=== PATIENT | female | born 1975 | race Caucasian/White ===

== ENCOUNTER 2017-08-12 22:42 | Emergency (ER) | payer OTHER ==
[~2017-08-12] VITALS: Ht 160 cm; Wt 48.1 kg
[~2017-08-12 22:42] MED LIST: ALLERGY MEDICATION; ASPI81EC; BUDE6HFA; BUDE6HFA INH; CITA20 PO; CLIN300 PO; CLINDAMYCIN IV; CYCL10 PO; Cyclobenzaprine5 MG PO; DIPH50 PO; FLUSAL2505; HYDACE10B; HYDACE10B PO; HYDACE5 PO; HYDGUAL120 PO; IBUP600 PO; LEVO750 PO; METAOI; METH5 PO; Norco 5-325 Ta1 EACH PO; OXYACE10 PO; OXYACE5T PO; PRED10 PO; RXLORA1 PO; SULTRIDS PO; SYMBICORT; VENL150ER PO; Ventolin/Prove6.7 GM INH
== END 2017-08-13 00:30 | disposition home or self-care (01) ==
LOC: ER 22:42
DX: K04.7 Periapical abscess without sinus (principal); Z88.0 Allergy status to penicillin; Z88.8 Allergy status to other drugs, medicaments and biological substances; Z79.899 Other long term (current) drug therapy; F17.200 Nicotine dependence, unspecified, uncomplicated; Z91.018 Allergy to other foods
CPT/HCPCS: 96365; 99282

== ENCOUNTER 2017-08-13 23:23 | Emergency (ER) | payer OTHER ==
[~2017-08-13] VITALS: Ht 160 cm; Wt 48.1 kg
== END 2017-08-14 01:01 | disposition home or self-care (01) ==
LOC: ER 23:23
DX: K04.7 Periapical abscess without sinus (principal); Z88.0 Allergy status to penicillin; Z88.8 Allergy status to other drugs, medicaments and biological substances; Z91.018 Allergy to other foods; Z79.899 Other long term (current) drug therapy; Z79.2 Long term (current) use of antibiotics; F17.200 Nicotine dependence, unspecified, uncomplicated
CPT/HCPCS: 96365; 99282

== ENCOUNTER 2017-08-14 23:24 | Emergency (ER) | payer OTHER ==
[~2017-08-14] VITALS: Ht 160 cm; Wt 48.1 kg
== END 2017-08-15 01:28 | disposition home or self-care (01) ==
LOC: ER 23:24
DX: K04.7 Periapical abscess without sinus (principal); F17.200 Nicotine dependence, unspecified, uncomplicated; Z88.8 Allergy status to other drugs, medicaments and biological substances; Z88.0 Allergy status to penicillin; Z91.018 Allergy to other foods; Z79.899 Other long term (current) drug therapy
CPT/HCPCS: 96365; 99282

== ENCOUNTER 2017-08-15 08:03 | Day surgery (SDC) | payer OTHER | END 2017-08-15 08:42 | disposition home or self-care (01) | LOC: ATC 08:03 | DX: K04.7 Periapical abscess without sinus (principal) | CPT/HCPCS: 96365 ==

== ENCOUNTER → 2018-04-02 | Outpatient (CLI) | payer OTHER | END | disposition home or self-care (01) | LOC: LAB SRC 10:25 → LAB SHORT 10:25 | DX: Z51.81 Encounter for therapeutic drug level monitoring (principal); Z79.899 Other long term (current) drug therapy | CPT/HCPCS: G0480 ==

== ENCOUNTER → 2018-04-28 | Outpatient (CLI) | payer OTHER | END | disposition home or self-care (01) | LOC: LAB SHORT 12:55 → PLD 12:55 | DX: R87.618 Other abnormal cytological findings on specimens from cervix uteri (principal) | CPT/HCPCS: 88305 ==

== ENCOUNTER → 2018-08-05 | Outpatient (CLI) | payer OTHER | END | disposition home or self-care (01) | LOC: LAB SHORT 15:58 → LAB SRC 15:58 → LAB SHORT 08-06 10:36 | DX: N39.0 Urinary tract infection, site not specified (principal) | CPT/HCPCS: 87077; 87086; 87186 ==

== ENCOUNTER 2019-04-11 16:43 | Emergency (ER) | payer OTHER ==
[~2019-04-11] VITALS: Ht 160 cm; Wt 49.9 kg
[2019-04-11 17:45] LABS: BASOPHILS ABSOLUTE AUTO 0.04 K/mm3 (0.00-0.23); BASOPHILS PERCENT AUTO 0 % (0-2); EOSINOPHILS ABSOLUTE AUTO 0.09 K/mm3 (0.00-0.68); EOSINOPHILS PERCENT AUTO 1 % (0-6); Hematocrit 44.1 % (33.0-51.0); IMMATURE GRAN ABSOLUTE AUTO 0.03 K/mm3 (0.00-0.10); IMMATURE GRAN PERCENT AUTO 0 % (0-1); LYMPHOCYTES ABSOLUTE AUTO 2.68 K/mm3 (0.84-5.20); LYMPHOCYTES PERCENT AUTO 26 % (21-46); MONOCYTES ABSOLUTE AUTO 0.54 K/mm3 (0.16-1.47); MONOCYTES PERCENT AUTO 5 % (4-13); Mean Corpuscular HGB 31.9 pg (26.0-34.0); Mean Corpuscular HGB Conc 31.7 g/dL (31.5-36.5); Mean Corpuscular Volume 101 fL (80-100); Mean Platelet Volume 8.9 fL (9.1-12.4); NEUTROPHILS PERCENT AUTO 67 % (41-73); Platelet Count 293 K/mm3 (150-400); RDW Coefficient Variation 13.9 % (11.7-14.2); RDW Standard Deviation 51.6 fL (35.1-46.3); Red Blood Cell Count 4.39 M/mm3 (3.80-5.20); White Blood Cell Count 10.18 K/mm3 (4.00-11.30)
[2019-04-11 18:07] LABS: Alanine Aminotransfer (ALT/SGP 17 U/L (12-78); Albumin, Blood 4.2 g/dL (3.4-5.0); Alk Phos 85 U/L (50-136); Anion Gap 6 mmol/L (6-16); Aspartate Aminotrans (AST/SGOT 13 U/L (12-37); Bilirubin, Total 0.3 mg/dL (0.1-1.0); Blood Urea Nitrogen 12 mg/dL (8-24); Bun/Creatinine Ratio 16.5 (12.0-20.0); CO2, Blood 22 mmol/L (21-32); Calcium, Blood 9.3 mg/dL (8.5-10.1); Chloride, Blood 106 mmol/L (98-108); Creatinine, Blood 0.73 mg/dL (0.40-1.00); Globulin, Blood 4.2 g/dL (2.2-4.0); Glomerular Filtration Rate >60 (60-); Glucose, Blood 86 mg/dL (70-99); Potassium, Blood 3.5 mmol/L (3.5-5.5); Sodium, Blood 134 mmol/L (136-145); Total Protein, Blood 8.4 g/dL (6.4-8.2)
== END 2019-04-11 22:13 | disposition home or self-care (01) ==
LOC: ER 16:43
PROVIDERS: Emergency Medicine
DX: N93.9 Abnormal uterine and vaginal bleeding, unspecified (principal); R10.32 Left lower quadrant pain; F17.210 Nicotine dependence, cigarettes, uncomplicated; Z79.899 Other long term (current) drug therapy
CPT/HCPCS: 36415; 80053; 83690; 84703; 85025; 96360; 99284-25; J7120

== ENCOUNTER → 2019-04-25 | Outpatient (CLI) | payer OTHER ==
[2019-04-27 14:09] LABS: HPV 16 Positive (Negative); HPV 18 Negative (Negative); HPV OTHER HR TYPES Negative (Negative)
== END | disposition home or self-care (01) ==
LOC: LAB SHORT 19:13 → LAB 19:13
PROVIDERS: Obstetrics & Gynecology
DX: Z01.419 Encounter for gynecological examination (general) (routine) without abnormal findings (principal)
CPT/HCPCS: 87624; G0123

== ENCOUNTER 2019-11-21 11:17 | Day surgery (SDC) | payer OTHER ==
[~2019-11-21] VITALS: Ht 165.1 cm; Wt 52.6 kg
[~2019-11-21 11:17] MED LIST changes: +GABA100 PO; +PANT40; +POTA10T PO; +SYMBICORT 160-4.6 GM INH
--- NOTE | 2019-11-21 12:11 | NUR ---
11/21/19 1211 Subhash jacob FIRST IV IN RIGHT HAND MISSED SECOND IV IN RIGHT AC WORKED
== END 2019-11-21 13:32 | disposition home or self-care (01) ==
LOC: ORSCSDS 11:17
PROVIDERS: Student in an Organized Health Care Education/Training Program
PROC: 0DB78ZX Excision of Stomach, Pylorus, Via Natural or Artificial Opening Endoscopic, Diagnostic (ICD-10-PCS; principal; 2019-11-21 13:00)
PROC: 0DB58ZX Excision of Esophagus, Via Natural or Artificial Opening Endoscopic, Diagnostic (ICD-10-PCS; principal; 2019-11-21 13:00)
PROC: 0DB98ZX Excision of Duodenum, Via Natural or Artificial Opening Endoscopic, Diagnostic (ICD-10-PCS; principal; 2019-11-21 13:00)
DX: K21.9 Gastro-esophageal reflux disease without esophagitis (principal); R10.9 Unspecified abdominal pain; K22.70 Barrett's esophagus without dysplasia; R13.14 Dysphagia, pharyngoesophageal phase; K29.70 Gastritis, unspecified, without bleeding; F17.210 Nicotine dependence, cigarettes, uncomplicated; I10 Essential (primary) hypertension; J45.909 Unspecified asthma, uncomplicated; Z79.899 Other long term (current) drug therapy
CPT/HCPCS: 88305; 88342; J2704; J7120

== ENCOUNTER → 2022-03-16 | Outpatient (CLI) | payer OTHER ==
[2022-03-18 11:00] LABS: Stool Occult Bld Immuno 1 Negative (NEGATIVE)
== END | disposition home or self-care (01) ==
LOC: LAB SHORT 12:00 → LAB 12:00
PROVIDERS: Physician Assistant
DX: Z12.11 Encounter for screening for malignant neoplasm of colon (principal)
CPT/HCPCS: G0328

== ENCOUNTER 2022-10-26 23:43 | Emergency (ER) | payer OTHER ==
[~2022-10-26] VITALS: Ht 160 cm; Wt 45.4 kg
[2022-10-27 00:23] VITALS: BP 151/102
[2022-10-27 01:00] LABS: BASOPHILS ABSOLUTE AUTO 0.05 K/mm3 (0.00-0.23); BASOPHILS PERCENT AUTO 0 % (0-2); EOSINOPHILS ABSOLUTE AUTO 0.09 K/mm3 (0.00-0.68); EOSINOPHILS PERCENT AUTO 1 % (0-6); Hematocrit 39.2 % (33.0-51.0); Hemoglobin 13.3 g/dL (11.5-16.0); IMMATURE GRAN ABSOLUTE AUTO 0.04 K/mm3 (0.00-0.10); IMMATURE GRAN PERCENT AUTO 0 % (0-1); LYMPHOCYTES ABSOLUTE AUTO 2.47 K/mm3 (0.84-5.20); LYMPHOCYTES PERCENT AUTO 21 % (21-46); MONOCYTES PERCENT AUTO 4 % (4-13); Mean Corpuscular HGB 31.2 pg (26.0-34.0); Mean Corpuscular HGB Conc 33.9 g/dL (31.5-36.5); Mean Corpuscular Volume 92 fL (80-100); Mean Platelet Volume 8.7 fL (9.1-12.4); NEUTROPHILS PERCENT AUTO 73 % (41-73); Platelet Count 401 K/mm3 (150-400); RDW Coefficient Variation 14.2 % (11.7-14.2); RDW Standard Deviation 48.2 fL (35.1-46.3); Red Blood Cell Count 4.26 M/mm3 (3.80-5.20); White Blood Cell Count 11.75 K/mm3 (4.00-11.30)
[2022-10-27 01:16] LABS: Albumin, Blood 3.7 g/dL (3.4-5.0); Albumin/Globulin Ratio 0.9 (0.8-1.8); Bilirubin, Total 0.3 mg/dL (0.1-1.0); Bun/Creatinine Ratio 15.6 (12.0-20.0); Calcium, Blood 9.6 mg/dL (8.5-10.1); Creatinine, Blood 0.83 mg/dL (0.40-1.00); Globulin, Blood 4.2 g/dL (2.2-4.0); Salicylate 13.2 mg/dL (2.8-20.0); Total Protein, Blood 7.9 g/dL (6.4-8.2)
== END 2022-10-27 04:08 | disposition left against medical advice (07) ==
LOC: ER 23:43
PROVIDERS: Student in an Organized Health Care Education/Training Program
DX: R44.3 Hallucinations, unspecified (principal); R20.0 Anesthesia of skin; F17.200 Nicotine dependence, unspecified, uncomplicated; Z79.899 Other long term (current) drug therapy; Z53.21 Procedure and treatment not carried out due to patient leaving prior to being seen by health care provider
CPT/HCPCS: 80053; 84484; 85025; 93005; 93010; G0480

== ENCOUNTER → 2022-10-29 | Outpatient (CLI) | payer OTHER | LOC: LAB SHORT 15:04 → LAB 15:04 | DX: N39.0 Urinary tract infection, site not specified (principal) | CPT/HCPCS: 87077; 87086; 87186 ==

== ENCOUNTER 2022-11-22 17:52 | Emergency (ER) | payer OTHER ==
[~2022-11-22] VITALS: Ht 160 cm; Wt 45.4 kg
[2022-11-22 18:17] VITALS: BP 162/110
[2022-11-22] MEDS ORDERED: LOSA25 PO (19:38)
[2022-11-22 20:04] LABS: BASOPHILS ABSOLUTE AUTO 0.07 K/mm3 (0.00-0.23); BASOPHILS PERCENT AUTO 1 % (0-2); EOSINOPHILS ABSOLUTE AUTO 0.11 K/mm3 (0.00-0.68); EOSINOPHILS PERCENT AUTO 1 % (0-6); Hematocrit 34.1 % (33.0-51.0); Hemoglobin 11.6 g/dL (11.5-16.0); IMMATURE GRAN ABSOLUTE AUTO 0.05 K/mm3 (0.00-0.10); IMMATURE GRAN PERCENT AUTO 0 % (0-1); LYMPHOCYTES ABSOLUTE AUTO 1.94 K/mm3 (0.84-5.20); LYMPHOCYTES PERCENT AUTO 14 % (21-46); MONOCYTES ABSOLUTE AUTO 0.72 K/mm3 (0.16-1.47); MONOCYTES PERCENT AUTO 5 % (4-13); Mean Corpuscular HGB 31.9 pg (26.0-34.0); Mean Corpuscular Volume 94 fL (80-100); Mean Platelet Volume 9.4 fL (9.1-12.4); NEUTROPHILS ABSOLUTE AUTO 10.79 K/mm3 (1.96-9.15); NEUTROPHILS PERCENT AUTO 79 % (41-73); Platelet Count 283 K/mm3 (150-400); RDW Coefficient Variation 14.7 % (11.7-14.2); Red Blood Cell Count 3.64 M/mm3 (3.80-5.20); White Blood Cell Count 13.68 K/mm3 (4.00-11.30)
[2022-11-22 20:16] LABS: Source, Urine Clean Catch
[2022-11-22 20:18] LABS: Acetaminophen, Random <2.0 ug/mL (10.0-30.0); Alanine Aminotransfer (ALT/SGP 15 U/L (12-78); Albumin, Blood 3.6 g/dL (3.4-5.0); Albumin/Globulin Ratio 0.9 (0.8-1.8); Alk Phos 86 U/L (50-136); Anion Gap 7 mmol/L (6-16); Aspartate Aminotrans (AST/SGOT 20 U/L (12-37); Bilirubin, Total 0.3 mg/dL (0.1-1.0); Blood Urea Nitrogen 9 mg/dL (8-24); Bun/Creatinine Ratio 8.2 (12.0-20.0); CO2, Blood 18 mmol/L (21-32); Calcium, Blood 9.3 mg/dL (8.5-10.1); Chloride, Blood 114 mmol/L (98-108); Ethanol (Alcohol), Blood, Med <3 mg/dL; Globulin, Blood 3.9 g/dL (2.2-4.0); Glomerular Filtration Rate 62 (60-); Glucose, Blood 90 mg/dL (70-99); Potassium, Blood 3.2 mmol/L (3.5-5.5); Salicylate 13.3 mg/dL (2.8-20.0); Sodium, Blood 139 mmol/L (136-145); Total Protein, Blood 7.5 g/dL (6.4-8.2)
[2022-11-22 20:19] LABS: Bilirubin, Urine Neg (Neg); Blood, Urine 2+ (Neg); Glucose Qualitative, Urine Neg (Neg); Ketones, Urine Neg (Neg); Leukocyte Esterase, Urine 1+ (Neg); Nitrite, Urine Neg (Neg); Protein, Urine 1+ (Neg); Urobilinogen, Urine NORM (Normal); pH, Urine 6.5 (5.0-8.0)
[2022-11-22 20:24] LABS: Appearance, Urine Hazy (Clear); Color, Urine Yellow (P-Yellow)
[2022-11-22 20:25] LABS: Bacteria Many /hpf; Red Blood Cells, Urine 0-2 /hpf (0-2); Squamous Epithelial Cells Few /hpf (Few)
[2022-11-22 20:40] LABS: U Amphetamine Screen Not Detected; U Barbituate Screen Not Detected; U Benzodiazapine Screen Not Detected; U Buprenorphine Screen Not Detected; U Cannabinoids Screen Not Detected; U Cocaine Screen Not Detected; U Methadone Screen Not Detected; U Methamphetamine Screen Not Detected; U Opiates Screen DETECTED; U Oxycodone Screen Not Detected; U Phencyclidine Screen Not Detected; U Propoxyphene Screen Not Detected
[2022-11-22] MEDS ORDERED: ABILIFY MYCITE PO (21:41)
[2022-11-22] MEDS ORDERED: Macrobid 100 M100 MG PO (21:41)
== END 2022-11-22 21:55 | disposition home or self-care (01) ==
LOC: ER 17:52
PROVIDERS: Emergency Medicine
DX: F29 Unspecified psychosis not due to a substance or known physiological condition (principal); N39.0 Urinary tract infection, site not specified; E87.6 Hypokalemia; F17.210 Nicotine dependence, cigarettes, uncomplicated; Z88.0 Allergy status to penicillin; Z88.1 Allergy status to other antibiotic agents; Z91.018 Allergy to other foods; Z88.8 Allergy status to other drugs, medicaments and biological substances; Z79.1 Long term (current) use of non-steroidal anti-inflammatories (NSAID); Z79.899 Other long term (current) drug therapy; Z79.51 Long term (current) use of inhaled steroids
CPT/HCPCS: 80053; 81001; 81025; 85025; 87077; 87086; 87186; 99283-25; A9270; G0480; Q3014

== ENCOUNTER 2023-02-13 11:28 | Emergency (ER) | payer OTHER ==
[~2023-02-13] VITALS: Ht 160 cm; Wt 43.1 kg
[~2023-02-13 11:28] MED LIST changes: +ABILIFY MYCITE PO; +LOSA25 PO; +Macrobid 100 M100 MG PO
[2023-02-13 11:34] VITALS: BP 158/104
[2023-02-13 11:57] LABS: BASOPHILS ABSOLUTE AUTO 0.08 K/mm3 (0.00-0.23); BASOPHILS PERCENT AUTO 1 % (0-2); EOSINOPHILS ABSOLUTE AUTO 0.05 K/mm3 (0.00-0.68); EOSINOPHILS PERCENT AUTO 0 % (0-6); Hematocrit 39.8 % (33.0-51.0); Hemoglobin 13.2 g/dL (11.5-16.0); IMMATURE GRAN ABSOLUTE AUTO 0.06 K/mm3 (0.00-0.10); IMMATURE GRAN PERCENT AUTO 0 % (0-1); LYMPHOCYTES ABSOLUTE AUTO 2.39 K/mm3 (0.84-5.20); LYMPHOCYTES PERCENT AUTO 15 % (21-46); MONOCYTES ABSOLUTE AUTO 0.66 K/mm3 (0.16-1.47); MONOCYTES PERCENT AUTO 4 % (4-13); Mean Corpuscular HGB 32.6 pg (26.0-34.0); Mean Corpuscular HGB Conc 33.2 g/dL (31.5-36.5); Mean Corpuscular Volume 98 fL (80-100); Mean Platelet Volume 8.7 fL (9.1-12.4); NEUTROPHILS ABSOLUTE AUTO 12.86 K/mm3 (1.96-9.15); NEUTROPHILS PERCENT AUTO 80 % (41-73); Platelet Count 423 K/mm3 (150-400); RDW Coefficient Variation 14.6 % (11.7-14.2); RDW Standard Deviation 53.2 fL (35.1-46.3); Red Blood Cell Count 4.05 M/mm3 (3.80-5.20)
[2023-02-13 12:02] LABS: Source, Urine Clean Catch
[2023-02-13] MEDS ORDERED: CONSTULOSE10 GM/155 PO (12:02)
[2023-02-13] MEDS ORDERED: OLANZAPINE1024 PO (12:03)
[2023-02-13] MEDS ORDERED: OMEP20ER PO (12:03)
[2023-02-13 12:13] LABS: Appearance, Urine Hazy (Clear); Bilirubin, Urine Neg (Neg); Blood, Urine 2+ (Neg); Color, Urine Yellow (P-Yellow); Glucose Qualitative, Urine Neg (Neg); Ketones, Urine Neg (Neg); Leukocyte Esterase, Urine 2+ (Neg); Nitrite, Urine Pos (Neg); Protein, Urine 2+ (Neg); Specific Gravity, Urine 1.015 (1.003-1.022); Urobilinogen, Urine NORM (Normal)
[2023-02-13 12:32] LABS: Ethanol (Alcohol), Blood, Med <3 mg/dL; Salicylate 11.3 mg/dL (2.8-20.0)
[2023-02-13 12:34] LABS: Acetaminophen, Random <2.0 ug/mL (10.0-30.0); Alanine Aminotransfer (ALT/SGP 25 U/L (12-78); Alk Phos 103 U/L (50-136); Anion Gap 3 mmol/L (6-16); Aspartate Aminotrans (AST/SGOT 21 U/L (12-37); Bilirubin, Total 0.3 mg/dL (0.1-1.0); Blood Urea Nitrogen 19 mg/dL (8-24); Bun/Creatinine Ratio 21.6 (12.0-20.0); CO2, Blood 27 mmol/L (21-32); Calcium, Blood 9.7 mg/dL (8.5-10.1); Chloride, Blood 114 mmol/L (98-108); Creatinine, Blood 0.88 mg/dL (0.40-1.00); Globulin, Blood 4.2 g/dL (2.2-4.0); Glomerular Filtration Rate 81 (60-); Glucose, Blood 107 mg/dL (70-99); Potassium, Blood 3.6 mmol/L (3.5-5.5); Sodium, Blood 144 mmol/L (136-145); Total Protein, Blood 8.2 g/dL (6.4-8.2)
[2023-02-13 12:41] LABS: U Amphetamine Screen Not Detected; U Barbituate Screen Not Detected; U Benzodiazapine Screen Not Detected; U Buprenorphine Screen Not Detected; U Cannabinoids Screen Not Detected; U Cocaine Screen Not Detected; U Methadone Screen Not Detected; U Methamphetamine Screen Not Detected; U Opiates Screen Not Detected; U Oxycodone Screen Not Detected; U Phencyclidine Screen Not Detected
[2023-02-13 13:05] LABS: Bacteria Many /hpf
[2023-02-13 13:06] LABS: Red Blood Cells, Urine 0-2 /hpf (0-2)
[2023-02-13 13:07] LABS: Squamous Epithelial Cells Few /hpf (Few)
[2023-02-13 13:09] LABS: Hyaline Casts 0-2 /lpf (0-2)
[2023-02-13 13:10] LABS: Mucus Light (0-Heavy)
== END 2023-02-13 15:00 | disposition home or self-care (01) ==
LOC: ER 11:28
PROVIDERS: Physician Assistant
DX: R44.0 Auditory hallucinations (principal); R44.1 Visual hallucinations; N39.0 Urinary tract infection, site not specified; F41.9 Anxiety disorder, unspecified; I12.9 Hypertensive chronic kidney disease with stage 1 through stage 4 chronic kidney disease, or unspecified chronic kidney disease; N18.2 Chronic kidney disease, stage 2 (mild); J44.9 Chronic obstructive pulmonary disease, unspecified; M41.9 Scoliosis, unspecified; F17.210 Nicotine dependence, cigarettes, uncomplicated; Z79.51 Long term (current) use of inhaled steroids; Z79.899 Other long term (current) drug therapy; Z88.0 Allergy status to penicillin; Z88.1 Allergy status to other antibiotic agents; Z91.018 Allergy to other foods
CPT/HCPCS: 80053; 81001; 81025; 85025; 87077; 87086; 87186; 99285; A9270; G0480

== ENCOUNTER 2023-07-06 13:58 | Emergency (ER) | payer OTHER ==
[~2023-07-06] VITALS: Ht 162.6 cm; Wt 56.7 kg
[2023-07-06 14:43] VITALS: BP 133/94
== END 2023-07-06 18:27 | disposition home or self-care (01) ==
LOC: ER 13:58
DX: J44.1 Chronic obstructive pulmonary disease with (acute) exacerbation (principal); N39.0 Urinary tract infection, site not specified; M41.9 Scoliosis, unspecified; F41.9 Anxiety disorder, unspecified; I12.9 Hypertensive chronic kidney disease with stage 1 through stage 4 chronic kidney disease, or unspecified chronic kidney disease; N18.2 Chronic kidney disease, stage 2 (mild); F17.210 Nicotine dependence, cigarettes, uncomplicated; Z88.1 Allergy status to other antibiotic agents; Z88.0 Allergy status to penicillin; Z91.018 Allergy to other foods; Z79.51 Long term (current) use of inhaled steroids; Z79.899 Other long term (current) drug therapy

== ENCOUNTER 2023-09-02 09:02 | Emergency (ER) | payer OTHER ==
[~2023-09-02] VITALS: Ht 157.5 cm; Wt 49.9 kg
[~2023-09-02 09:02] MED LIST changes: +CEPH500 PO; +CONSTULOSE10 GM/155 PO; +OLANZAPINE1024 PO; +OMEP20ER PO; +Prednisone20 MG PO; +RISP1 PO
[2023-09-02] MEDS ORDERED: RisperiDONE 1 MG Tab PO ONE (10:20)
[2023-09-02] MEDS ORDERED: OLANZapine ODT 10 MG Tab PO SCH (11:30)
[2023-09-02] MEDS ORDERED: LORazepam 0.5 MG Tab PO PRN (11:35)
[2023-09-02 12:00] LABS: BASOPHILS ABSOLUTE AUTO 0.04 K/mm3 (0.00-0.23); BASOPHILS PERCENT AUTO 1 % (0-2); EOSINOPHILS ABSOLUTE AUTO 0.04 K/mm3 (0.00-0.68); EOSINOPHILS PERCENT AUTO 1 % (0-6); Hematocrit 41.5 % (33.0-51.0); IMMATURE GRAN ABSOLUTE AUTO 0.02 K/mm3 (0.00-0.10); IMMATURE GRAN PERCENT AUTO 0 % (0-1); LYMPHOCYTES ABSOLUTE AUTO 1.81 K/mm3 (0.84-5.20); LYMPHOCYTES PERCENT AUTO 22 % (21-46); MONOCYTES ABSOLUTE AUTO 0.38 K/mm3 (0.16-1.47); MONOCYTES PERCENT AUTO 5 % (4-13); Mean Corpuscular HGB 33.3 pg (26.0-34.0); Mean Corpuscular HGB Conc 33.7 g/dL (31.5-36.5); Mean Corpuscular Volume 99 fL (80-100); Mean Platelet Volume 9.2 fL (9.1-12.4); NEUTROPHILS ABSOLUTE AUTO 5.94 K/mm3 (1.96-9.15); NEUTROPHILS PERCENT AUTO 72 % (41-73); Platelet Count 264 K/mm3 (150-400); RDW Coefficient Variation 13.3 % (11.7-14.2); RDW Standard Deviation 48.1 fL (35.1-46.3); Red Blood Cell Count 4.21 M/mm3 (3.80-5.20); White Blood Cell Count 8.23 K/mm3 (4.00-11.30)
[2023-09-02 12:31] LABS: Ethanol (Alcohol), Blood, Med 7 mg/dL; Salicylate 9.7 mg/dL (2.8-20.0); Thyroid Stimulating Hormone 0.364 uIU/mL (0.360-4.800); Thyroxine (T4) 9.6 ug/dL (4.8-13.9)
[2023-09-02 12:35] LABS: Acetaminophen, Random <2.0 ug/mL (10.0-30.0); Alanine Aminotransfer (ALT/SGP 25 U/L (12-78); Albumin, Blood 4.1 g/dL (3.4-5.0); Albumin/Globulin Ratio 1.3 (0.8-1.8); Alk Phos 91 U/L (50-136); Anion Gap 4 mmol/L (3-11); Aspartate Aminotrans (AST/SGOT 26 U/L (12-37); Bilirubin, Total 0.6 mg/dL (0.1-1.0); Blood Urea Nitrogen 16 mg/dL (8-24); Bun/Creatinine Ratio 16.7 (12.0-20.0); CO2, Blood 27 mmol/L (21-32); Calcium, Blood 9.3 mg/dL (8.5-10.1); Chloride, Blood 115 mmol/L (98-108); Creatinine, Blood 0.96 mg/dL (0.40-1.00); Globulin, Blood 3.2 g/dL (2.2-4.0); Glomerular Filtration Rate 73 (60-); Glucose, Blood 94 mg/dL (70-99); Potassium, Blood 4.1 mmol/L (3.5-5.5); Sodium, Blood 142 mmol/L (136-145); Total Protein, Blood 7.3 g/dL (6.4-8.2)
[2023-09-02 12:46] LABS: Influenza A, PCR NEGATIVE (NEGATIVE); Influenza B, PCR NEGATIVE (NEGATIVE); Resp Syncytial Virus, PCR NEGATIVE (NEGATIVE); SARS-Cov-2 (COVID-19) PCR, MMC NEGATIVE (NEGATIVE)
[2023-09-02 17:20] LABS: Source, Urine Clean Catch
[2023-09-02 17:23] LABS: Appearance, Urine Cloudy (Clear); Bilirubin, Urine Neg (Neg); Blood, Urine 3+ (Neg); Color, Urine Yellow (P-Yellow); Glucose Qualitative, Urine Neg (Neg); Ketones, Urine Neg (Neg); Leukocyte Esterase, Urine 1+ (Neg); Nitrite, Urine Pos (Neg); Protein, Urine 3+ (Neg); Urobilinogen, Urine NORM (Normal)
[2023-09-02 17:29] LABS: Bacteria Many /hpf; Calcium Oxalate Crystals Rare /hpf; Squamous Epithelial Cells Few /hpf (Few)
[2023-09-02 17:33] LABS: U Amphetamine Screen Not Detected; U Barbituate Screen Not Detected; U Benzodiazapine Screen Not Detected; U Buprenorphine Screen Not Detected; U Cannabinoids Screen Not Detected; U Cocaine Screen Not Detected; U Methadone Screen Not Detected; U Methamphetamine Screen Not Detected; U Opiates Screen Not Detected; U Oxycodone Screen Not Detected; U Phencyclidine Screen Not Detected
[2023-09-02] MEDS ORDERED: CefTRIAXone 1000 MG Vial IM ONE (18:40)
[2023-09-03 08:03] VITALS: BP 124/87
[2023-09-03] MEDS ORDERED: Trimethoprim/Sulfamethoxazole DS Tab PO SCH (09:00)
== END 2023-09-03 12:27 | disposition other institution (70) ==
LOC: ER 09:02
PROVIDERS: Emergency Medicine; Physician Assistant
DX: F44.1 Dissociative fugue (principal); J44.9 Chronic obstructive pulmonary disease, unspecified; I12.9 Hypertensive chronic kidney disease with stage 1 through stage 4 chronic kidney disease, or unspecified chronic kidney disease; N18.2 Chronic kidney disease, stage 2 (mild); F17.210 Nicotine dependence, cigarettes, uncomplicated; Z79.52 Long term (current) use of systemic steroids; Z79.51 Long term (current) use of inhaled steroids; Z79.899 Other long term (current) drug therapy; Z88.0 Allergy status to penicillin; Z88.1 Allergy status to other antibiotic agents; Z91.018 Allergy to other foods; Z88.8 Allergy status to other drugs, medicaments and biological substances
CPT/HCPCS: 0241U; 80053; 81001; 81025; 84436; 84443; 85025; 86592; 87077; 87086; 87186; 96372; 99285-25; A9270; G0480; J0696

== ENCOUNTER 2023-09-02 15:07 | Inpatient (IN) | payer OTHER ==
[~2023-09-02] VITALS: Wt 45.8 kg
[2023-09-03 12:42] VITALS: BP 113/98
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
--- NOTE | 2023-09-03 16:13 | NUR ---
Patient was admitted at 1232. No Valuables were placed in safe. All items that patient had with them were put away in the belongings closet. Secured with numbered zipties. Patient was oriented to the unit and given a tour.
[2023-09-03] MEDS ORDERED: Ibuprofen 600 MG Tab PO PRN (16:45)
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
[2023-09-03] MEDS ORDERED: Trimethoprim/Sulfamethoxazole DS Tab PO SCH (21:00)
[2023-09-03] MEDS ORDERED: OLANZapine ODT 10 MG Tab PO SCH (21:00)
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
[2023-09-04] MEDS ORDERED: LORazepam 0.5 MG Tab PO PRN (11:45)
[2023-09-04] MEDS ORDERED: Mirtazapine 15 MG Tab PO PRN (11:45)
--- NOTE | 2023-09-04 11:53 | NUR ---
Aamir contacted of pt (i.e. Adelfo) by phone and spoke [id number]-1152am in order to review pt mental health hx. Adelfo advised that he and pt have been for 28 years and that pt did not display psychotic sx (i.e. halucinations) until 10/27/2023. Adelfo stated that it has been difficult for pt obtaining psychotic medications that have supported pt in stabilizing psychotic sx. Adelfo reported that when pt has antibotics along with risperidone, pt bx do not express psychotic sx.
--- NOTE | 2023-09-04 17:17 | NUR ---
SHIFT SUMMARY AT 1600 JUAN CAME TO VISIT PT. WHILE VISITING DR OATES CAME IN AND SEEN BOTH THE PT AND . GOT PT TO TAKE ATIVAN 0.25 BUT SHE WOULD NOT TAKE THE OTHER HALF TO EQUAL 0.5MG. PT OPENED THE MED PACKAGE AND WATER HERSELF. SHE WAS PARANOID TO TAKE THE MED IT MAY BE POISON. SHE ENJOYED HER VISIT WITH AND HE WILL VISIT DAILY TO SEE HER. HE STATED THAT HER SITUTION HAS BEEN GOING ON SINCE 2022. HE HAS LEARNED TO KEEP HER SAFE POSSIBLE HE CAN AND HOPES THIS TREATMENT WILL BE SUCESSFUL. AFTER HE LEFT SHE ATE 2 JELLOS, A STRING CHEESE AND A BOTTLE OF ENSURE. WILL CONTINUE TO MONITOR. DECLINED DINNER TRAY
[2023-09-04 19:28] VITALS: BP 98/78
[2023-09-04] MEDS ORDERED: RisperiDONE 1 MG Tab PO SCH (21:00)
[2023-09-05 09:23] VITALS: BP 108/74
--- NOTE | 2023-09-05 14:45 | NUR ---
PT CAME OUT OF ROOM AT 1415 FROM HER NAP AND TOLD STAFF THAT SHE "DIDN'T BELONG HERE." REASSURANCE GIVEN TO GET BETTER AND WILL BE HERE AND BRING HER GLASSES TODAY. NO VERBAL RETURN BUT DID SMILE.
--- NOTE | 2023-09-05 16:14 | NUR ---
SHIFT SUMMARY HERE VISIT AND BROUGHT HER HER GLASSES AND CASE. SHE DRANK STRAWBERRY ENSURE DURING VISIT. STILL HESITATION TO EVEN SMALL JESTURES WHEN OFFERED ANYTHING. ENCOURAGING POSITIVENESS TOWARDS PATIENT IN PRAISE OF HER TO GET WELL. SHE DID STATE EARILER THAT" SHE WANTS THE BAD PEOPLE TO GO AWAY". WILL CONTINUE TO MONITOR.
--- NOTE | 2023-09-05 17:41 | NUR ---
PATIENT ATE FROM HER DINNER TRAY TONIGHT, ABOUT 50%. THS IS A BIG STEP FOR THIS PATIENT. SHE WANTS SOMETHING TO DO AND HAS OFFERED TO HELP CLEAN. SAID THAT SHE WAS " PRETTY QUITE" DURING THE VISIT TODAY. HE WILL BE BACK TOMORROW. HAS NOT EXPRESSED ANY "BAD PEOPLE TO GO AWAY" THIS AFTERNOON. WILL CONTINUE TO MONITOR. UP IN GROUP ROOM WATCHING MOVIE.
--- NOTE | 2023-09-05 18:08 | NUR ---
PREPPED PATIENTS FOOD BEFORE PUTTING IT IN FRONT OF HER: PATIENT ATE QUITE A BIT MORE THIS WAY: PATIENT WET HER PANTS THIS MORNING AT BREAKFAST AND SHOWERED AFTER BREAKFAST:
--- NOTE | 2023-09-05 21:47 | NUR ---
PATIENT TOOK A LONG TIME DECIDING WHETHER OR NOT TO TAKE HER MEDICATIONS. PRINTOUTS GIVEN TO HER. SHE READ PART OF THE PRINTOUTS AND DID DECIDE TO TAKE THEM. PRINTOUTS IN HER ROOM AT THIS TIME.
[2023-09-06 09:28] VITALS: BP 112/76
--- NOTE | 2023-09-06 11:32 | NUR ---
ASSUMMED PT CARE @0715. PT IN BED RESTING EYES CLOSED. PT EASILY ROUSED FOR MORNING MEDS. PT IS ORIENTAED TO SELF. SHE IS UNABLE TO TELL ME WHY OR WHERE SHE IS. WHEN ATTEMPTING TO ORIENTATE PT SHE REPORTS THAT SHE "DOESN'T NEED TO KNOW" PT ANSWERS MOST ASSESSMENT QUESTIONS WITH " I DONT KNOW" OR DOESN'T ASWER AT ALL. SHE IS SOFT SPOKEN AND WITHDRAWN. PT WAS HESITANT TO TAKE MORNING MEDS, WITH GENTLE ENCOURAGEMENT SHE DID TAKE THEM. PT UP TO BREAKFAST AND REPORTS SHE WOULD LIKE TO TAKE A SHOWER. FRESH SCRUBS AND LINEN PROVIDED. PT DENIES ANY NEEDS AT THIS TIME.
--- NOTE | 2023-09-06 17:49 | NUR ---
SHIFT SUMMARY PT AWAKE AND ORIENTATED TO SELF AND SITUATION. PT SOFT SPOKEN. PT DID PARTICIPATE WITH MEALS, GROUP, AND TV ROOM. THIS IS AN IMPROVEMENT FROM THIS MORNING WHEN SHE STAYED IN HER ROOM. PT ABLE TO GIVE MORE DETAILED ANSWERS THAN " I DONT KNOW" REPLIES ARE STILL BRIEF BUT WITH MORE CONTENT. EYE CONTACT IS LIMITED WITH PT OFTEN LOOKING AWAY. MOOD HAS BEEN CALM. PT HESITANT BUT COMPLIANT WITH MEDICATIONS. APPETITE HAS BEEN GOOD WITH PT EATING MEALS AND SNACKS. PT AND SISTER IN TO SEE PT. PT DENIES NEEDS AT THIS TIME. WILL CONTINUE PLAN OF CARE UNTIL NOC SHIFT REPORT
[2023-09-06 21:25] VITALS: BP 96/77
--- NOTE | 2023-09-07 11:23 | NUR ---
Roni contacted [employer] by phone at 0931am and remained on hold until 1034am. At 1034am roni spoke with Salvador Gutierrez who advised that the pt would have a mental health intake assessment for 09/09 at 1300pm with him.
--- NOTE | 2023-09-08 03:10 | NUR ---
SHIFT SUMMARY ACCEPTED PT FROM PREVIOUS RN. PT IS LYING IN BED WITH BLANKETS PULLED UP TO CHIN. PT ANSWERS "I DON'T KNOW" TO MOST QUESTIONS INCLUDING ABOUT SI, HI, OR AVTH, BUT DID AGREE TO EAT SOME YOGURT WITH HER MEDS. TOOK MEDICATIONS WITHOUT REFUSAL. REFUSED TO COME OUT OF HER ROOM AT THIS TIME. WILL CONT TO MONITOR WITH SAFETY CHECKS EVERY 15 MINUTES PER PROTOCOL.
[2023-09-08 09:06] VITALS: BP 101/84
--- NOTE | 2023-09-08 19:38 | NUR ---
SHIFT ASSESSMENT PT AA&O TO PERSON PLACE AND SITUATION. SHE IS CALM AND COOPERATIVE WITH CARE. SHE IS QUIET AND GAURDED. SHE ANSWERS MOST QUESTIONS WITH "I DONT KNOW" BUT SHE IS GIVING MORE RELPIES THAN PREVIOUS DAYS. SHE WILL GET UP FOR SHOWER, GROUP, AND MEALS WITH ENCOURAGEMENT. PLAN TO CONTINUE WITH MEDICATION MANAGEMENT AND POC. SHE DEIES ANY NEEDS AT THIS TIME
[2023-09-08 22:29] VITALS: BP 110/62
--- NOTE | 2023-09-09 04:38 | NUR ---
SHIFT SUMMARY PT WAS SLEEPING SOUNDLY AT BEGINNING OF SHIFT AND WAS DIFFICULT TO WAKE UP. CN AND THIS RN WOKE HER UP AND HELPED HER TO SIT UP AND SWALLOW HER ANTIBIOTIC. SINCE PT WAS SO HARD TO WAKE UP, I DID NOT GIVE HER SEDATING MEDS THIS SHIFT. SHE WENT RIGHT BACK TO SLEEP AND HAS BEEN SLEEPING SINCE. SHE IS STILL DIFFICULT TO WAKE UP, BUT DOES WITH LOUD, REPEATED VERBAL PROMPTS, BUT GOES RIGHT BACK TO SLEEP. MONITORING WITH 15 MINUTE CHECKS T/O SHIFT. UNABLE TO ANSWER MANY QUESTIONS AND JUST RESPONDS WITH "I DON'T KNOW" AFTER QUESTIONS. WILL CONTINUE TO MONITOR AND PROVIDE CARE T/O SHIFT.
[2023-09-09 09:50] VITALS: BP 110/84
--- NOTE | 2023-09-09 18:36 | NUR ---
PT ATTENDED SEVERAL GROUPS TODAY, SHE HAS ASKED FOR SNACKS AND MADE HER NEEDS KNOWN. SHE HAD A VISIT WITH HER , IT APPEARED TO BE AN AMIABLE VISIT. SHE WENT BACK TO BED AFTER THE VISIT AND APPEARS TO BE SLEEPING AT THIS TIME.
--- NOTE | 2023-09-09 23:39 | NUR ---
PATIENT DIFFICULT TO ARROUSE AT MED PASS. SHE DID WAKE UP AND SAT UP FOR MEDICATION PASS. PATIENT SLEEPING WITHOUT ANY ISSUES OR BEHAVIORS. SHE DID REFUSE HER VS THIS SHIFT.
--- NOTE | 2023-09-10 02:00 | NUR ---
Patient sleeping without noted behaviors or issues.
--- NOTE | 2023-09-10 07:45 | NUR ---
PT UP TO DINING ROOM FOR BREAKFAST. REPORTS UNSURE HOW SHE IS FEELING SINCE SHE JUST WOKE. INFORMED PT WILL CHECK BACK AFTER BREAKFAST.
--- NOTE | 2023-09-10 10:11 | NUR ---
PT SLEEPING AT THIS TIME
[2023-09-10 11:45] VITALS: BP 121/76
--- NOTE | 2023-09-10 12:00 | NUR ---
PT UP FOR LUNCH IN DINING ROOM. IMMEDIATELY FOLLOWING RETURNED TO BED.
--- NOTE | 2023-09-10 15:00 | NUR ---
PT LYING IN BED, REPORTS SHE IS STILL HAVING AH BUT DENIES ANY SI/HI. PT REPORTS FEELING LIKE SHE WANTS TO GO HOME AND THAT WOULD MAKE HER FEEL BETTER. PT VERY QUITE AND SOFT WITH SPEECH. DISCUSSED W/ PT CONTINUED USE OF MEDICATIONS AND COMPLIANCY BUT PT STATES THAT IF IT DON'T WORK, WHY TAKE IT. I EDUCATED PT ABOUT OUR BODIES AND MIND MAKING US OFTEN FEEL LIKE WE DON'T NEED MEDICATIONS BUT WE IN FACT DO NEED THEM TO CONTINUE OUR STABILITY OUTSIDE OF THE MEDICAL FACILITY TO PREVENT READMIT. PT APPEARS TO HAVE SOME UNDERSTANDING.
--- NOTE | 2023-09-10 15:47 | NUR ---
PT VISITOR PT UP TO VISITOR ROOM FOR VISIT W/ .
--- NOTE | 2023-09-10 17:50 | NUR ---
PT PARTICIPATING IN GROUP CARD GAME MELLY
--- NOTE | 2023-09-10 18:09 | NUR ---
SHIFT SUMMARY PT CONTINUES TO BE QUIET AND SOFT SPOKEN. PT HAS HAD MINIMAL PARTICIPATION IN GROUPS TODAY. SHE IS PARTICIPATING IN MELLY CURRENTLY. PT EPIFANIO VISITED TODAY. AND PT UNDERSTANDING FOR DISCHARGE TOMORROW, ALTHOUGH STAFF UNAWARE. NO CONCERNS THIS SHIFT AND WILL CONTINUE TO MONITOR.
[2023-09-10 19:53] VITALS: BP 148/85
[2023-09-11 20:37] VITALS: BP 98/69
--- NOTE | 2023-09-12 02:17 | NUR ---
Patient is sleeping, no noted behaviors or issues. She was compliant with care, assessment and medications.
[2023-09-12 08:59] VITALS: BP 104/64
--- NOTE | 2023-09-12 18:17 | NUR ---
SHIFT SUMMARY PT AA&OX4. SHE WAS PLEASANT AND COOPERATIVE WITH CARE. PT UP TO MEALS AND GROUP. SHE DENIES AVH. SHE IS ABLE TO ANSWER QUESTIONS IN FULL SENTENCES. SHE ASKED QUESTIONS ABOUT MEDICATION AND LENGTH OF STAY. EYE CONTACT AND SPEECH APPROPRIATE. SHE HAS BEEN COMPLIANT WITH MEDICATION PT STILL WITHDRAWN, QUIET, AND PREFERED TO STAY IN ROOM UNLESS UNCOURAGED TO COME OUT BUT IS MUCH IMPROVED FROM ADMISSION. SHE DENIES ANY NEEDS AT THIS TIME.
[2023-09-12 19:41] VITALS: BP 116/74
--- NOTE | 2023-09-12 23:56 | NUR ---
sleeping quietly at this time. Will continue close monitoring
--- NOTE | 2023-09-13 04:39 | NUR ---
Sola slept well overnight. Oriented x3, cooperative and pleasant towards care. She did complain about bilateral ankle pain, and was given ibuprophen with good result. No SI, HI or AVH noted on assessment. will continue close observation
[2023-09-13 08:24] VITALS: BP 97/67
--- NOTE | 2023-09-13 16:55 | NUR ---
SHIFT SUMMARY PT AWAKE, ALERT, AND ORIENTATED TO PERSON, PLACE, AND SITUATION. PT COMPLIANT WITH MEDICATIONS. PT IS ABLE TO MAINTAIN EYE CONTACT LONGER AND IS HOLDING MORE DETAILED CONVERSATIONS. SHE DENIES SI/AVH. PT EDUCATED ON INVEGA INJECTIONS AND ADMINISTRATION TIMELINE. SHE VERBALIZED UNDERSTANDING FIRST INJECTION ORDERED AND PLANNED FOR 09/14 WITH THE SECOND ON 09/17. PT VOICED THAT SHE WOULD LIKE TO GO HOME SOON POSSIBLE. SHE DENIES ANY CURRENT NEEDS. WILL CONTINUE PLAN OF CARE UNTIL POC REPORT
[2023-09-13 21:33] VITALS: BP 107/78
--- NOTE | 2023-09-14 03:00 | NUR ---
Patient has slept through the night thus far without any noted behaviors or issues.
[2023-09-14 08:09] VITALS: BP 101/70
--- NOTE | 2023-09-14 17:59 | NUR ---
SHIFT SUMMARY PT A/O X4; PLEASANT AND COOPERATIVE WITH CARE. PT ABLE TO MAKE EYE CONTACT BRIEFLY, BUT AFFECT IS FLAT. DENIES SI OR ANY HALLUCINATIONS. COOPERATIVE WITH MEDICATIONS AT THIS TIME. SHE IS TO HAVE HER NEXT INVEGA INJECTION TOMORROW. VISITED PATIENT THIS AFTERNOON.
[2023-09-14 19:22] VITALS: BP 125/79
--- NOTE | 2023-09-15 04:04 | NUR ---
Patient had a peaceful night. Sleeptime so far has been 6.5 hours. OOB and pleasant prior to HS. Went to dining room for snack and was conversing with this RN and the [facility]. Good eye contact. No SI, HI or AVH noted
[2023-09-15 08:35] VITALS: BP 108/76
--- NOTE | 2023-09-15 09:02 | NUR ---
A.M. ASSESSMENT PT UP TO NURSES STATION, PLEASANT AND RESPECTFUL. PT REQUESTING SHOWER SUPPLIES, PHONE, AND VERBALIZES CONCERNS FOR DISCHARGE TODAY. EXPLAINED TO PT NEW DEVELOPMENTS ON POSSIBLE PLACEMENT TO [facility]ULT [facility] FOR MH CLIENTS. PT VISUALLY SEEMS MORE AT EASE W/ INFORMATION AND HOPEFUL FOR PLACEMENT. PT INFORMED THAT MAY BE OUT OF AREA AND PT REPORTS FINE WITH THIS CHOICE.
--- NOTE | 2023-09-15 09:13 | NUR ---
A.M. ASSESSMENT PT UP TO BREAKFAST IN DINING ROOM THEN BACK TO ROOM, SITTING AT EDGE OF BED. PT PLEASANT AND COOPERATIVE. PT INFORMS READY TO DISCHARGE AND GO HOME. DISCUSSED W/ PT INVEGA OPTION AND PT REPORTS SEVERAL PEOPLE HAVE DISCUSSED THIS OPTION AND SHE IS STILL UNSURE OF INJ. PT EDUCATED ON TIME FRAMES AND CONVIENENCE OF INJ. PT REPORTS WILL CONTINUE TO THINK ABOUT IT.
--- NOTE | 2023-09-15 11:25 | NUR ---
Sw attempted to contact pt PCP at 11:22am. Per business center representative Keven, pt PCP was in a meeting, however, Keven will advise the PCP to contact sw sometime today between 1400-1430pm. In the event the sw does not receive a callback, sw will attempt to contact PCP another time as soon as possible.
--- NOTE | 2023-09-15 13:04 | NUR ---
PT ACCEPTANCE OF INVEGA INJ NURSE PAGE SPOKE W/ PT REGARDING INVEGA INJ, PT AGREEABLE TO INJ AT THIS TIME. PROVIDER NOTIFIED AND ORDERS PLACED. PLANS FOR PT TO RECEIVE SECOND DOSE THURSDAY BEFORE DISCHARGE HOME.
--- NOTE | 2023-09-15 13:38 | NUR ---
PT EDUCATED ON RISK VRS BENEFIT OF INVEGA SUSTENNA. PT EXPRESSES CONCERN ABOUT MEDICATION ALL AT ONCE. PT EDUCATED ON INVEGA AND HOW IT WORKS. SHE AGREED TO "GIVE IT A TRY. FIRST INJECTION GIVEN IN L DELTOID. PT TOLERATED WELL
[2023-09-15] MEDS ORDERED: Paliperidone Palmitate 234 MG/1.5 ML SYR IM SCH (16:00)
--- NOTE | 2023-09-15 16:17 | NUR ---
PT IN VISITOR ROOM W/ PLAYING CARDS.
--- NOTE | 2023-09-15 18:09 | NUR ---
SHIFT SUMMARY PT A&OX4, COOPERATIVE W/ CARE. PT AGREED AND ACCEPTED INVEGA INJ TODAY W/ NURSE PAGE. AGREEABLE TO STAY TILL THURSDAY FOLLOWING 2ND DOSE. PT SMILING AND PARTICIPATING W/ GROUPS AND ACTIVITIES TODAY. NO ACUTE CHANGES OR CONCERNS THIS SHIFT.
[2023-09-15 19:30] VITALS: BP 111/63
[2023-09-15] MEDS ORDERED: OLANZapine ODT 5 MG Tab PO SCH (21:00)
[2023-09-15] MEDS ORDERED: RisperiDONE 1 MG Tab PO SCH (21:00)
--- NOTE | 2023-09-16 04:11 | NUR ---
Patient A&Ox4, pleasant and conversant with staff and peers. No SI, HI, or AVH on assessment. Out of bed to dining room for snacks before HS. Sleep time so far around 7 hours. will continue close observation
[2023-09-16 08:36] VITALS: BP 109/75
--- NOTE | 2023-09-16 09:14 | NUR ---
PT AWAKE AND ATE BREAKFAST EARLY, SHE IS COMMUNICATIVE AND MAKING NEEDS KNOWN. DENIES ANY SI/HI WELL AH/VH/TH. PT CO INCREASED VAGINAL DISCHARGE, STATES SIMILAR TO YEAST INFECTION SHE HAS HAD IN THE PAST. PT COMPLIANT WITH MEDICATIONS, PT ASKS QUESTIONS APPROPRIATELY ABOUT THE MEDICATIONS. PT NOW PARTICIPATING IN MORNING MOVEMENT GROUP WITH OT.
[2023-09-16] MEDS ORDERED: Fluconazole 100 MG Tab PO ONE ×2 (10:25→10:40)
--- NOTE | 2023-09-16 10:48 | NUR ---
Aamir contacted [facility] by phone at approximately 1045am in order to schedule therapy f/u services. Per Jasmina of [employer], Arina Frye (i.e. [employer] staff) will visit the [facility] today to review therapy services for pt with sw.
[2023-09-16] MEDS ORDERED: OLANZapine ODT 5 MG Tab PO SCH (21:00)
--- NOTE | 2023-09-17 04:42 | NUR ---
Sola slept well overnight. no SI, HI or AVH. Pleasant and cooperative with both staff and peers. Sleep hours to this time 8 hours. Informed [facility] she hadn't had stool since entering the facility. Stated "chocolate only thing that works" for her bowels. Chocolate given per patient request. Patient told to inform staff when her bowels move.
[2023-09-17 08:57] VITALS: BP 94/69
--- NOTE | 2023-09-17 22:52 | NUR ---
PATIENT ALREADY IN BED AT BEGINNING OF SHIFT. SHE DID WAKE UP C/O OF BACK PAIN. CN GAVE HER PRN TYLENOL WITH GOOD RESULTS. SHE WENT BACK TO SLEEP AT 930PM. NO NOTED ISSUES OR BEHAVIORS.
--- NOTE | 2023-09-18 01:52 | NUR ---
Patient is sleeping, no noted issues or behaviors.
--- NOTE | 2023-09-18 05:44 | NUR ---
PATIENT SLEPT THROUGH THE NIGHT WITHOT BEHAVIORS OR ANY NOTED ISSUES. POSSIBLE DISCHARGE HOME TODAY.
[2023-09-18 08:43] VITALS: BP 96/65
[2023-09-18] MEDS ORDERED: Paliperidone Palmitate 156 MG/ML SYR IM ONE (09:00)
[2023-09-18] MEDS ORDERED: MIRT15 (11:41)
[2023-09-18] MEDS ORDERED: Diflucan150 MG PO (11:41)
--- NOTE | 2023-09-18 12:59 | NUR ---
Discharge Summary: Patient discharged home with . Discussed discharge instructions including medications, appointments and patient education. Patient and verbalized understanding and denied questions.
--- NOTE | 2023-09-18 13:03 | NUR ---
PT confirmed all belongings were in her possesion upon discharge at the [facility] 1252.
[2023-09-21] MEDS ORDERED: Fluconazole 100 MG Tab PO SCH (09:00)
== END 2023-09-18 12:55 | disposition home or self-care (01) | DRG 885 ==
LOC: BHU 15:07
PROVIDERS: ADMIT Psychiatry & Neurology Psychiatry
DX: F20.0 Paranoid schizophrenia (principal); M41.9 Scoliosis, unspecified; F41.9 Anxiety disorder, unspecified; I12.9 Hypertensive chronic kidney disease with stage 1 through stage 4 chronic kidney disease, or unspecified chronic kidney disease; N18.2 Chronic kidney disease, stage 2 (mild); J44.9 Chronic obstructive pulmonary disease, unspecified; F17.210 Nicotine dependence, cigarettes, uncomplicated; Z98.51 Tubal ligation status; Z98.890 Other specified postprocedural states; Z79.51 Long term (current) use of inhaled steroids; Z88.0 Allergy status to penicillin; Z88.8 Allergy status to other drugs, medicaments and biological substances; Z79.899 Other long term (current) drug therapy; Z91.018 Allergy to other foods
CPT/HCPCS: A9270; J2426

== ENCOUNTER → 2023-10-19 | Outpatient (CLI) | payer OTHER ==
[~2023-10-19] MED LIST changes: +Diflucan150 MG PO; +MIRT15
== END ==
LOC: LAB 18:03 → LAB SHORT 18:03
DX: N39.0 Urinary tract infection, site not specified (principal)
CPT/HCPCS: 87086

== ENCOUNTER → 2023-12-07 | Outpatient (CLI) | payer OTHER ==
[2023-12-18 14:53] LABS: HPV HIGH RISK BY TMA Not Detected; HPV SOURCE Cervical
== END | disposition home or self-care (01) ==
LOC: LAB 19:59 → LAB SHORT 19:59
PROVIDERS: Nurse Practitioner Family
DX: Z12.4 Encounter for screening for malignant neoplasm of cervix (principal); Z11.51 Encounter for screening for human papillomavirus (HPV)
CPT/HCPCS: 87624; G0123